=== PATIENT | male | born 1970 | race Caucasian/White ===

== ENCOUNTER 2020-04-26 20:56 | Emergency (ER) | payer OTHER ==
--- NOTE | 2020-04-26 21:15 | ER ---
Nurse's Notes [facility] Name: Adria Augustine Age: 49 yrs Sex: Male : 1970 Arrival Date: 04/26/2020 Time: 21:01 Bed 17 Private MD: Diagnosis: Encounter for issue of repeat prescription Presentation: 04/26 21:11 Chief complaint: Patient states: Out of metoprolol 100 mg PO BID, HCTZ 25 mg daily, and ll1 Lantus insulin. Coronavirus screen: Client denies travel out of the [place] in the last 14 days. At this time, the client does not indicate any symptoms associated with coronavirus-19. Ebola Screen: Patient denies travel to an Ebola-affected area in the 21 days before illness onset. Initial Sepsis Screen: Does the patient meet any 2 criteria? HR > 90 bpm. No. Patient's initial sepsis screen is negative. Does the patient have a suspected source of infection? No. Patient's initial sepsis screen is negative. Risk Assessment: Do you want to hurt yourself or someone else? Patient reports no desire to harm self or others. Onset of symptoms was April 13, 2020. 21:11 Method Of Arrival: Ambulatory ll1 21:11 Acuity: HERNESTO 5 ll1 Historical: - Allergies: 21:11 No Known Allergies; ll1 - Home Meds: 21:29 metoprolol tartrate 50 mg Oral tab 2 tabs 2 times per day [Active]; hydrochlorothiazide sf 25 mg Oral tab 1 tab once daily [Active]; Lantus 100 unit/mL Sub-Q soln 20 unit daily [Active]; - PMHx: 21:11 Diabetes - IDDM; Hypertension; Hyperlipidemia; ll1 - PSHx: 21:11 None; ll1 - Immunization history:: Adult Immunizations unknown. - Social history:: Smoking status: Patient denies any tobacco usage or history of. Screenin:30 Abuse screen: Denies threats or abuse. Denies injuries from another. Nutritional sf screening: No deficits noted. Tuberculosis screening: No symptoms or risk factors identified. Never had TB. Possible symptoms: None Risk factors: None. Fall Risk None identified. No fall in past 12 months (0 pts). No secondary diagnosis (0 pts). No IV (0 pts). Ambulatory Aid- None/Bed Rest/Nurse Assist (0 pts). Gait- Normal/Bed Rest/Wheelchair (0 pts) Mental Status- Oriented to own ability (0 pts). Total Ge Fall Scale indicates No Risk (0-24 pts). Assessment: 21:29 General: Appears in no apparent distress. comfortable, Behavior is calm, cooperative, sf appropriate for age. Pain: Denies pain. Neuro: No deficits noted. Level of Consciousness is awake, alert, obeys commands, Oriented to person, place, time, situation, Appropriate for age. Cardiovascular: No deficits noted. Patient's skin is warm and dry. Respiratory: No deficits noted. Airway is patent Respiratory effort is even, unlabored, Respiratory pattern is regular, symmetrical. Vital Signs: 21:11 BP 200 / 117; Pulse 111; Resp 18; Temp 98.4; Pulse Ox 96% on R/A; Pain 0/10; ll1 ED Course: 21:01 Patient arrived in ED. mr 21:10 Arm band placed on Patient placed in an exam room, on a stretcher. ll1 21:12 Param Jiménez NP is PHCP. pm1 21:12 Joseph Daniels MD is Attending Physician. pm1 21:13 Triage completed. ll1 21:25 Jose Luis Biggs, MARK is Primary Nurse. sf 21:30 Bed in low position. Call light in reach. Side rails up X 1. sf 21:30 No provider procedures requiring assistance completed. Patient did not have IV access sf during this emergency room visit. Administered Medications: No medications were administered Outcome: 21:14 Discharge ordered by MD. pm1 21:30 Discharged to sf 21:30 Condition: stable 21:30 Discharge instructions given to patient, Instructed on discharge instructions, follow up and referral plans. medication usage, Demonstrated understanding of instructions, follow-up care, medications, Prescriptions given X 3. 21:31 Patient left the ED. sf Signatures: Erma Ortiz Param Jiménez, MATT VEGETABLE TESTER pm1 Yossi Pollock RN RN 1 Jose Luis Biggs, MARK RN sf
--- NOTE | 2020-04-26 21:15 | EDPHYS ---
Physician Documentation [facility] Name: Adria Augustine Age: 49 yrs Sex: Male : 1970 Arrival Date: 04/26/2020 Time: 21:01 Bed 17 Private MD: ED Physician Joseph Daniels HPI: 04/26 21:14 This 49 yrs old Male presents to ER via Ambulatory with complaints of pm1 Medication Refill. 21:14 The patient presents to the emergency department requesting refill(s) for: metoprolol, pm1 hctz, lantus. The patient chronically suffers from diabetes, hypertension. The patient has not recently seen a physician, just moved to the area from [place] . Historical: - Allergies: 21:11 No Known Allergies; ll1 - Home Meds: 21:29 metoprolol tartrate 50 mg Oral tab 2 tabs 2 times per day [Active]; hydrochlorothiazide sf 25 mg Oral tab 1 tab once daily [Active]; Lantus 100 unit/mL Sub-Q soln 20 unit daily [Active]; - PMHx: 21:11 Diabetes - IDDM; Hypertension; Hyperlipidemia; ll1 - PSHx: 21:11 None; ll1 - Immunization history:: Adult Immunizations unknown. - Social history:: Smoking status: Patient denies any tobacco usage or history of. ROS: 21:14 Constitutional: Negative for fever, chills, and weight loss, Cardiovascular: Negative pm1 for chest pain, palpitations, and edema, Respiratory: Negative for shortness of breath, cough, wheezing, and pleuritic chest pain, Abdomen/GI: Negative for abdominal pain, nausea, vomiting, diarrhea, and constipation, Back: Negative for injury and pain, Skin: Negative for injury, rash, and discoloration, Neuro: Negative for headache, weakness, numbness, tingling, and seizure. Exam: 21:14 Constitutional: This is a well developed, well nourished patient who is awake, alert, pm1 and in no acute distress. Head/Face: Normocephalic, atraumatic. 21:14 Skin: Warm, dry with normal turgor. Normal color with no rashes, no lesions, and no evidence of cellulitis. MS/ Extremity: Pulses equal, no cyanosis. Neurovascular intact. Full, normal range of motion. 21:14 Cardiovascular: Exam negative for acute changes, Rate: normal, Rhythm: regular, Pulses: no pulse deficits are appreciated. 21:14 Respiratory: Exam negative for acute changes, respiratory distress, shortness of breath. 21:14 Neuro: Exam negative for acute changes, Orientation: is normal, Mentation: is normal, Motor: is normal, moves all fours. Vital Signs: 21:11 BP 200 / 117; Pulse 111; Resp 18; Temp 98.4; Pulse Ox 96% on R/A; Pain 0/10; ll1 MDM: 21:13 Counseling: I had a detailed discussion with the patient and/or guardian regarding: the pm1 historical points, exam findings, and any diagnostic results supporting the discharge/admit diagnosis, the need for outpatient follow up, a family practitioner. 21:14 Patient medically screened. pm1 21:14 Data reviewed: vital signs. pm1 Administered Medications: No medications were administered Disposition: 04/27 02:32 Co-signature as Attending Physician, Joseph Daniels MD. [facility] Disposition: 04/26/20 21:14 Discharged to Home. Impression: Encounter for issue of repeat prescription. - Condition is Stable. - Discharge Instructions: Medicine Refill at the Emergency Department. - Prescriptions for Lantus 100 unit/mL Subcutaneous solution - inject 20 unit by SUBCUTANEOUS route once daily; 1 vial. Hydrochlorothiazide 25 mg Oral Tablet - take 1 tablet by ORAL route once daily .; 30 tablet. Metoprolol Tartrate 100 mg Oral Tablet - take 1 tablet by ORAL route 2 times per day with a meal; 20 tablet. - Medication Reconciliation Form, Thank You Letter, Antibiotic Education, Prescription Opioid Use form. - Follow up: Emergency Department; When: As needed; Reason: Worsening of condition. Follow up: Private Physician; When: 2 - 3 days; Reason: Recheck today's complaints, Continuance of care, Re-evaluation by your physician. - Problem is new. - Symptoms have improved. Signatures: Param Jiménez, BOOKIE BOOKIE pm1 Yossi Pollock RN RN [facility] Joseph Daniels MD MD [facility] Jose Luis Biggs RN RN Corrections: (The following items were deleted from the chart) 04/26 21:31 21:14 04/26/2020 21:14 Discharged to Home. Impression: Encounter for issue of repeat sf prescription. Condition is Stable. Forms are Medication Reconciliation Form, Thank You Letter, Antibiotic Education, Prescription Opioid Use. Follow up: Emergency Department; When: As needed; Reason: Worsening of condition. Follow up: Private Physician; When: 2 - 3 days; Reason: Recheck today's complaints, Continuance of care, Re-evaluation by your physician. Problem is new. Symptoms have improved. pm1
[2020-04-26 21:48] VITALS: BP 200/117; TEMP 98.4; O2SAT 96
== END 2020-04-26 21:31 | disposition home or self-care (01) ==
LOC: ER 20:56
DX: Z76.0 Encounter for issue of repeat prescription (principal); I10 Essential (primary) hypertension; E11.9 Type 2 diabetes mellitus without complications; E78.5 Hyperlipidemia, unspecified; Z79.4 Long term (current) use of insulin
CPT/HCPCS: 99282

== ENCOUNTER 2020-07-30 14:48 | Emergency (ER) | payer OTHER ==
--- OUTSIDE RECORDS SUMMARY | 2020-07-30 14:51 | XMS REPORT | Continuity of Care Document ---
:1970 Author Organization [facility] t Address [address] [place] [address] Care Team Providers Name Role Phone Unavailable Unavailable Unavailable Problems This patient has no known problems. Allergies, Adverse Reactions, Alerts This patient has no known allergies or adverse reactions. Medications This patient has no known medications. Procedures This patient has no known procedures. Encounters Start End Encounter Admission Attending Care Care Encounter Source Date/Time Date/Time Type Type Clinicians Facility Department ID 2020-06-16 2020-06-16 Outpatient [facility] [id number] [facility] 00:00:00 00:00:00 Lizette Hoff ent Clinics Results This patient has no known results.
[2020-07-30] MEDS ORDERED: HYDRALAZINE HCL 20 MG/ML VIAL ONE (15:38)
[2020-07-30 15:55] LABS: Absolute Lymphocytes (CBC) 0.3 K/uL (0.7-4.9); Basophils % 0.6 % (0-1.3); Hematocrit 45.2 % (39.6-49.0); Lymphocytes % 8.3 % (15.3-44.8); MPV 9.9 fL (7.6-11.3); RBC Red Blood Cell Count 4.55 M/uL (4.33-5.43)
--- NOTE | 2020-07-30 16:07 | RAD REPORT ---
EXAM DESCRIPTION: CT - Head Brain Wo Cont - 07/30/2020 3:46 pm CLINICAL HISTORY: TRAUMA COMPARISON: <Comparisons> TECHNIQUE: Axial 5 mm thick images of the head were obtained without IV contrast. All CT scans are performed using dose optimization technique as appropriate and may include automated exposure control or mA/KV adjustment according to patient size. FINDINGS: No intracranial hemorrhage, mass, edema or shift of mid-line structures. No acute infarcti on changes seen. No cortical edema or sulcal effacement. Ventricles are normal size. There is some qu estionable early volume loss given the patient's age. No chronic ischemic changes seen. Mastoid air cells and visualized portions of the paranasal sinuses are clear. Posterior scalp hematoma is present small in size. Underlying bone is intact. IMPRESSION: Negative non-contrast CT head examination for significant intracranial finding.
[2020-07-30 16:09] LABS: Protime INR 1.12
[2020-07-30 16:16] LABS: ALT/SGPT 133 U/L (12-78); Albumin 3.5 g/dL (3.4-5.0); Alkaline Phosphatase 121 U/L (45-117); BUN Blood Urea Nitrogen 6 mg/dL (7-18); Bicarbonate 25 mmol/L (21-32); Bilirubin Direct 0.6 mg/dL (0-0.2); Bilirubin Total 1.8 mg/dL (0.2-1.0); Glucose Level 262 mg/dL (74-106); Protein, Total 8.5 g/dL (6.4-8.2); Sodium Level 135 mmol/L (136-145)
[2020-07-30 16:19] LABS: AST/SGOT 242 U/L (15-37); Potassium 4.3 mmol/L (3.5-5.1)
[2020-07-30] MEDS ORDERED: LORazepam 2 MG/ML VIAL ONE (16:24)
[2020-07-30] MEDS ORDERED: NA CHLORIDE 0.9% 1,000 ML ONE (16:24)
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
[2020-07-30] MEDS ORDERED: ONDANSETRON 4 MG (ODT) TAB ONE (19:05)
[2020-07-30 19:18] VITALS: TEMP 97.6
[2020-07-30 19:19] VITALS: O2SAT 97
[2020-07-30 19:21] VITALS: BP 133/99
== END 2020-07-30 18:53 | disposition home or self-care (01) ==
LOC: ER 14:48
PROC: 0JQ00ZZ Repair Scalp Subcutaneous Tissue and Fascia, Open Approach (ICD-10-PCS; principal; 2020-07-30)
DX: S01.01XA Laceration without foreign body of scalp, initial encounter (principal); W22.8XXA Striking against or struck by other objects, initial encounter; I10 Essential (primary) hypertension
CPT/HCPCS: 96361; 93005; 85025; 80048; 36415; 85610; 82947; 80076; 85730; 70450; 96375; 96374; 99284; 12002; J0360; J7030